=== PATIENT | female | born 1970 | race American Indian/Alaskan Native ===

== ENCOUNTER 2016-09-17 16:15 | Outpatient (CLI) | payer MEDICAID ==
--- NOTE | 2016-09-18 08:38 | Magnetic Resonance Report ---
MRI LUMBAR SPINE WITHOUT CONTRAST HISTORY: Low back pain. TECHNIQUE: axial T1, T2. sagittal T1,T2, STIR. COMPARISON: none. FINDINGS: The conus terminates at L1. No signal abnormality or mass. The cauda equina is within normal limits. No central canal stenosis. Normal height and alignment of the lumbar vertebra. The facet joints are in appropriate relationship. Normal bone marrow signal. No acute fracture or suspicious bone lesion. The paraspinal soft tissues are unremarkable. The discs are within normal limits. L1-2: No abnormality. L2-3: No abnormality. L3-4: No abnormality with the disc. Minimal facet arthropathy. L4-5: No abnormality with the disc. Mild facet arthropathy and hypertrophy of the ligamentum flavum. L5-S1: No abnormality would be disappeared mild facet arthropathy, left greater than right. Mild hypertrophy of ligamentum flavum. IMPRESSION: Mild facet arthropathy in the lower lumbar spine. No evidence for bulging disc, annular tear, herniation, central canal stenosis or neuroforaminal narrowing. No fracture or bone lesion. These findings appear appropriate for this persons age.
== END 2016-09-17 16:16 | disposition home or self-care (01) ==
LOC: MRI 16:15
PROVIDERS: ATTEND Pain Medicine Interventional Pain Medicine
DX: M12.88 Other specific arthropathies, not elsewhere classified, other specified site (principal); M54.5 Low back pain; M24.28 Disorder of ligament, vertebrae
CPT/HCPCS: 72148

== ENCOUNTER 2017-02-07 06:31 | Emergency (ER) | payer MEDICAID ==
[2017-02-07] MEDS ORDERED: TYLENOL PO ONE ×2 (07:15→07:18)
[2017-02-07] MEDS ORDERED: TYLENOL ONE (07:20)
[2017-02-07 07:41] VITALS: BP 147/83
--- NOTE | 2017-02-07 07:50 | Emergency Department Report ---
ED General Adult HPI - General Chief complaint: Dental/Oral Stated complaint: TOOTHACHE Time Seen by Provider: 02/07/17 07:49 Source: patient Mode of arrival: Ambulatory Limitations: No Limitations - History of Present Illness Initial comments: Patient is a 46-year-old female past medical history of diabetes who presents with left-sided tooth pain. She states the tooth pain has been going on for the last day. She states it is severe it as a 9 out of 10 and is constant it is a sharp intense pain. Eating makes the pain worse and nothing makes it better. Patient's pain radiates to her upper jaw. Patient states that she has not noticed any fever or any facial swelling. Patient has been to a dentist who states that she will need a tooth removed but she still states that she needs a soliciting freight agent to see if one of her lower teeth can be saved. Severity scale (0 -10): 10 - Related Data Previous Rx's Medication Instructions Recorded Last Taken Type Acetaminophen [Tylenol] 1,000 mg PO Q6HR #40 tablet 02/07/17 Unknown Rx Naproxen [Naproxen TAB] 250 mg PO BID #20 tablet 02/07/17 Unknown Rx Allergies Allergy/AdvReac Type Severity Reaction Status Date / Time Penicillins AdvReac Nausea Unverified 07/25/13 10:47 ED Review of Systems ROS: Stated complaint: TOOTHACHE Other details as noted in HPI Constitutional: denies: chills, fever Eyes: denies: eye pain, eye discharge, vision change ENT: dental pain. denies: ear pain, throat pain Respiratory: denies: cough, shortness of breath, wheezing Cardiovascular: denies: chest pain, palpitations Endocrine: no symptoms reported Gastrointestinal: denies: abdominal pain, nausea, diarrhea Genitourinary: denies: urgency, dysuria, discharge Musculoskeletal: denies: back pain, joint swelling, arthralgia Skin: denies: rash, lesions Neurological: denies: headache, weakness, paresthesias Psychiatric: denies: anxiety, depression Hematological/Lymphatic: denies: easy bleeding, easy bruising ED Past Medical Hx - Past Medical History Previous Medical History?: Yes Hx Diabetes: Yes - Surgical History Past Surgical History?: No - Social History Smoking Status: Never Smoker Substance Use Type: None - Medications Home Medications: Home Medications Medication Instructions Recorded Confirmed Last Taken Type Acetaminophen [Tylenol] 1,000 mg PO Q6HR #40 tablet 02/07/17 Unknown Rx Naproxen [Naproxen TAB] 250 mg PO BID #20 tablet 02/07/17 Unknown Rx ED Physical Exam - General Limitations: No Limitations General appearance: alert, in no apparent distress - Head Head exam: Present: atraumatic, normocephalic - Eye Eye exam: Present: normal appearance - ENT ENT exam: Present: mucous membranes moist, other (some dental caries in lower and upper molars) - Neck Neck exam: Present: normal inspection - Respiratory Respiratory exam: Present: normal lung sounds bilaterally. Absent: respiratory distress - Cardiovascular Cardiovascular Exam: Present: regular rate, normal rhythm. Absent: systolic murmur, diastolic murmur, rubs, gallop - GI/Abdominal GI/Abdominal exam: Present: soft, normal bowel sounds - Extremities Exam Extremities exam: Present: normal inspection - Back Exam Back exam: Present: normal inspection - Neurological Exam Neurological exam: Present: alert, oriented X3 - Psychiatric Psychiatric exam: Present: normal affect, normal mood - Skin Skin exam: Present: warm, dry, intact, normal color. Absent: rash ED Course Vital Signs 02/07/17 02/07/17 02/07/17 06:38 07:19 07:40 Temperature 98.3 F 98.4 F Pulse Rate 78 79 Respiratory 20 18 14 Rate Blood Pressure 172/105 Blood Pressure 147/83 [Left] O2 Sat by Pulse 97 98 Oximetry 02/07/17 07:41 Temperature Pulse Rate Respiratory 14 Rate Blood Pressure Blood Pressure [Left] O2 Sat by Pulse 98 Oximetry - Reevaluation(s) Reevaluation #1: 02/07/17 08:50 Patient's pain has resolved with the nerve block. I will send the patient home. - Nerve Block Consent Obtained: verbal consent Time Out Performed: Yes (identify patient and explained Procedure) Local Anesthetic Used: LIDOCAINE 1% with EPI Amount of anesthesia used: 6 (ml) Side: left Intraoral Nerve Block: superior alveolar, inferior alveolar Procedure Successful: Yes Complications: none Patient Tolerated Procedure: well ED Medical Decision Making - Lab Data Lab Results 02/07/17 Range/Units 06:40 POC Glucose 260 H (70-105) - Medical Decision Making Chief medical diagnosis: Dental caries Differential diagnosis: Impacted tooth, periapical abscess I will obtain POCT sugar and I will perform a dental block. Patient states the pain is feeling better and then she will follow up with a dentist on Thursday. I will send patient with some clindamycin and some Naprosyn and Tylenol. Critical care attestation.: If time is entered above; I have spent that time in minutes in the direct care of this critically ill patient, excluding procedure time. ED Disposition Clinical Impression: Hyperglycemia, Pain in tooth, Dental caries Disposition: TO HOME OR SELFCARE Is pt being admited?: No Does the pt Need Aspirin: No Condition: Stable Instructions: Toothache (ED) Prescriptions: Acetaminophen [Tylenol] 1,000 mg PO Q6HR #40 tablet Naproxen [Naproxen TAB] 250 mg PO BID #20 tablet Time of Disposition: 08:57
[2017-02-07] MEDS ORDERED: XYLOCAINE 1%/ EPI 1:100,000 INFILTRATI ONE (08:00)
== END 2017-02-07 09:05 | disposition home or self-care (01) ==
LOC: ED 06:31
DX: K02.9 Dental caries, unspecified (principal); E11.65 Type 2 diabetes mellitus with hyperglycemia; Z88.0 Allergy status to penicillin
CPT/HCPCS: 82962

== ENCOUNTER 2017-04-10 22:10 | Emergency (ER) | payer MEDICAID ==
--- NOTE | 2017-04-11 03:39 | Emergency Department Report ---
ED ENT HPI - General Chief complaint: Dental/Oral Stated complaint: TOOTHPAIN Time Seen by Provider: 04/11/17 03:33 Source: patient Mode of arrival: Wheelchair Limitations: No Limitations - History of Present Illness Initial comments: pt is a 46 y/o aaf with hx of dental carries, DM II, who presents for toothache intermittent x 2 day pt pending follow up with dentist for extraction, , and follow up appointment with pain management on 04-20-2017 pt requesting pain mediation and abx for dental abscess at this time, pt state toothache is exacerbated by hot and cold stimuli, there is no fever no chills , complaint: tooth pain Onset/Timin -: days(s) Location: tooth # Severity: moderate Severity scale (0 -10): 7 Quality: aching Consistency: constant Improves with: NSAID Worsens with: none Context-Epistaxis: aspirin use Associated Symptoms: toothache, sore throat. denies: fever, cough, gum swelling - Related Data Home Medications Medication Instructions Recorded Confirmed Last Taken Cyclobenzaprine [Flexeril 10 MG 10 mg PO BID 04/11/17 04/11/17 1 Day Ago TAB] HYDROcodone/APAP 10-325 [Marion 1 each PO Q8HR PRN 04/11/17 04/11/17 1 Day Ago 10/325] Previous Rx's Medication Instructions Recorded Last Taken Type Acetaminophen 1,000 mg PO QID #60 tablet 04/11/17 Unknown Rx Chlorhexidine Mouthwash [Peridex] 15 ml MM BID #1 bottle 04/11/17 Unknown Rx Clindamycin [Clindamycin CAP] 300 mg PO Q6H #40 capsule 04/11/17 Unknown Rx Allergies Allergy/AdvReac Type Severity Reaction Status Date / Time Penicillins AdvReac Nausea Verified 04/11/17 03:15 ED Dental HPI - General Chief complaint: Dental/Oral Stated complaint: TOOTHPAIN Time Seen by Provider: 04/11/17 03:33 Source: patient Mode of arrival: Wheelchair Limitations: No Limitations - History of Present Illness complaint: tooth pain, sore throat - Related Data Home Medications Medication Instructions Recorded Confirmed Last Taken Cyclobenzaprine [Flexeril 10 MG 10 mg PO BID 04/11/17 04/11/17 1 Day Ago TAB] HYDROcodone/APAP 10-325 [Marion 1 each PO Q8HR PRN 04/11/17 04/11/17 1 Day Ago 10/325] Previous Rx's Medication Instructions Recorded Last Taken Type Acetaminophen 1,000 mg PO QID #60 tablet 04/11/17 Unknown Rx Chlorhexidine Mouthwash [Peridex] 15 ml MM BID #1 bottle 04/11/17 Unknown Rx Clindamycin [Clindamycin CAP] 300 mg PO Q6H #40 capsule 04/11/17 Unknown Rx Allergies Allergy/AdvReac Type Severity Reaction Status Date / Time Penicillins AdvReac Nausea Verified 04/11/17 03:15 ED Review of Systems ROS: Stated complaint: TOOTHPAIN Other details as noted in HPI Constitutional: denies: chills, fever Eyes: denies: eye pain, eye discharge, vision change ENT: as per HPI, ear pain, dental pain, congestion Respiratory: orthopnea, shortness of breath. denies: cough, wheezing Cardiovascular: denies: chest pain, palpitations Endocrine: no symptoms reported Gastrointestinal: denies: abdominal pain, nausea, diarrhea Genitourinary: denies: urgency, dysuria, discharge Musculoskeletal: denies: back pain, joint swelling, arthralgia Skin: denies: rash, lesions Neurological: denies: headache, weakness, paresthesias Psychiatric: denies: anxiety, depression Hematological/Lymphatic: denies: easy bleeding, easy bruising ED Past Medical Hx - Past Medical History Hx Diabetes: Yes Additional medical history: CHRONIC BACK PAIN -- UNDER CARE OF A PAIN DOCTOR IN [place] - Surgical History Past Surgical History?: No - Social History Smoking Status: Never Smoker Substance Use Type: None - Medications Home Medications: Home Medications Medication Instructions Recorded Confirmed Last Taken Type Acetaminophen 1,000 mg PO QID #60 tablet 04/11/17 Unknown Rx Chlorhexidine Mouthwash [Peridex] 15 ml MM BID #1 bottle 04/11/17 Unknown Rx Clindamycin [Clindamycin CAP] 300 mg PO Q6H #40 capsule 04/11/17 Unknown Rx Cyclobenzaprine [Flexeril 10 MG 10 mg PO BID 04/11/17 04/11/17 1 Day Ago History TAB] HYDROcodone/APAP 10-325 [Marion 1 each PO Q8HR PRN 04/11/17 04/11/17 1 Day Ago History 10/325] ED Physical Exam - General Limitations: No Limitations General appearance: alert, in no apparent distress - Head Head exam: Present: atraumatic, normocephalic - Eye Eye exam: Present: normal appearance, PERRL, EOMI, scleral icterus, periorbital swelling Pupils: Present: normal accommodation - ENT ENT exam: Present: mucous membranes moist. Absent: TM's normal bilaterally, normal external ear exam - Expanded ENT Exam Expanded Ear exam: Present: normal external inspection Mouth exam: Present: normal external inspection, tongue normal. Absent: trismus , tongue elevation Teeth exam: Present: dental caries (17), fractured tooth # (17), dental tenderness #. Absent: gingival enlargement Throat exam: Negative: tonsillar erythema, tonsillomegaly, tonsillar exudate, R peritonsillar mass, L peritonsillar mass - Neck Neck exam: Present: normal inspection, full ROM, lymphadenopathy, thyromegaly. Absent: tenderness, meningismus - Respiratory Respiratory exam: Present: normal lung sounds bilaterally. Absent: respiratory distress, wheezes, stridor, chest wall tenderness - Cardiovascular Cardiovascular Exam: Present: regular rate, normal rhythm. Absent: systolic murmur, diastolic murmur, rubs, gallop - GI/Abdominal GI/Abdominal exam: Present: soft, normal bowel sounds - Rectal Rectal exam: Present: deferred - Extremities Exam Extremities exam: Present: normal inspection, full ROM - Back Exam Back exam: Present: normal inspection, full ROM - Neurological Exam Neurological exam: Present: alert, oriented X3, normal gait. Absent: motor sensory deficit, reflexes normal - Psychiatric Psychiatric exam: Present: normal affect, normal mood, anxious, flat affect, suicidal ideation - Skin Skin exam: Present: warm, dry, intact, normal color. Absent: rash ED Course Vital Signs 04/10/17 22:14 Temperature 98.2 F Pulse Rate 79 Respiratory 18 Rate Blood Pressure 128/73 O2 Sat by Pulse 98 Oximetry ED Medical Decision Making - Medical Decision Making pt is a 46 y/o aaf with hx of dental carries, DM II, who presents for toothache intermittent x 2 day pt pending follow up with dentist for extraction, , and follow up appointment with pain management on 04-20-2017 pt requesting pain mediation and abx for dental abscess at this time, pt state toothache is exacerbated by hot and cold stimuli, there is no fever no chills , Critical care attestation.: If time is entered above; I have spent that time in minutes in the direct care of this critically ill patient, excluding procedure time. ED Disposition Clinical Impression: Infected dental carries Disposition: TO HOME OR SELFCARE Is pt being admited?: No Does the pt Need Aspirin: No Condition: Good Instructions: Dental Caries (ED) Additional Instructions: follow up with [facility] [phone] Prescriptions: Acetaminophen 1,000 mg PO QID #60 tablet Chlorhexidine Mouthwash [Peridex] 15 ml MM BID #1 bottle Clindamycin [Clindamycin CAP] 300 mg PO Q6H #40 capsule Referrals: PRIMARY CARE, [Primary Care Provider] - 3-5 Days Forms: Work/School Release Form(ED) Time of Disposition: 03:52
[2017-04-11] MEDS ORDERED: ULTRAM PO ONE (03:53)
[2017-04-11 04:27] VITALS: BP 130/75
== END 2017-04-11 04:27 | disposition home or self-care (01) ==
LOC: ED 22:10
DX: K02.9 Dental caries, unspecified (principal); E11.9 Type 2 diabetes mellitus without complications; Z88.0 Allergy status to penicillin
CPT/HCPCS: 82962; 99283